=== PATIENT | female | born 1945 | race Two or more races ===

== ENCOUNTER 2018-03-20 08:06 | Emergency (ER) | payer OTHER ==
[~2018-03-20] VITALS: Ht 152.4 cm; Wt 85.3 kg
[~2018-03-20 08:06] MED LIST: INTESTINEX1 CAP PO; NABUMETONE500 MG PO; PERCOCET 5/3251 TAB PO
[2018-03-20] MEDS ORDERED: VERAPAMIL ER240 MG (08:23)
[2018-03-20] MEDS ORDERED: CRESTOR5 MG (08:23)
[2018-03-20] MEDS ORDERED: TRANDOLAPRIL2 MG (08:23)
== END 2018-03-20 16:18 | disposition home or self-care (01) ==
LOC: ER 08:06
DX: N39.0 Urinary tract infection, site not specified (principal); R10.31 Right lower quadrant pain

== ENCOUNTER 2018-10-25 09:11 | Outpatient (CLI) | payer OTHER ==
[~2018-10-25 09:11] MED LIST changes: +CRESTOR5 MG; +TRANDOLAPRIL2 MG; +VERAPAMIL ER240 MG
== END 2018-10-25 09:21 | disposition home or self-care (01) ==
LOC: SONOGRAMA 09:11
DX: N13.1 Hydronephrosis with ureteral stricture, not elsewhere classified (principal)